=== PATIENT | female | born 1960 | race Caucasian/White ===

== ENCOUNTER → 2024-02-15 09:01 | Outpatient (REF) | payer OTHER, SELFPAY | LOC: HWRCS 09:01 | PROVIDERS: ATTENDING PHYSICIAN Nurse Practitioner Adult Health | DX: R94.31 Abnormal electrocardiogram [ECG] [EKG] (principal) | CPT/HCPCS: 93306 ==

== ENCOUNTER 2025-10-23 06:18 | Day surgery (SDC) | payer OTHER, SELFPAY | END 2025-10-23 11:31 | disposition home or self-care (01) | LOC: GI 06:18 | PROVIDERS: ATTENDING PHYSICIAN Internal Medicine | DX: Z12.11 Encounter for screening for malignant neoplasm of colon (principal); R19.5 Other fecal abnormalities; K64.8 Other hemorrhoids; K62.89 Other specified diseases of anus and rectum; D12.8 Benign neoplasm of rectum; K63.5 Polyp of colon; D01.3 Carcinoma in situ of anus and anal canal | CPT/HCPCS: 45385; 45380; 88305 ==